=== PATIENT | male | born 1990 | race African-American/Black ===

== ENCOUNTER 2017-02-28 10:02 | Emergency (ER) | payer OTHER ==
[2017-02-28] MEDS ORDERED: SODIUM CHLORIDE 2,000 ML IV STA (10:10)
--- NOTE | 2017-02-28 10:10 | PDOC ---
Attending Attestation - Resident Resident Name: Jori Macario - ED Attending Attestation I have performed the following: I have examined & evaluated the patient, The case was reviewed & discussed with the resident, I agree w/resident's findings & plan, Exceptions are as noted - HPI HPI: 26 yo M [facility], hypotension. He has history of PCP and marijuana use, denies any IV drugs. He states that he was in a rehab meeting today, suddenly felt weak, dizzy, palpitations. Found to have low blood pressure , was transferred to ED. He did not eat or drink today, but took his medications. - Physicial Exam PE: GENERAL: Awake, alert, and fully oriented, in no acute distress HEAD: No signs of trauma EYES: PERRLA, EOMI, sclera anicteric, conjunctiva clear ENT: Auricles normal inspection, hearing grossly normal, nares patent, oropharynx clear without exudates. Dry mucosa NECK: Normal ROM, supple, no lymphadenopathy, JVD, or masses LUNGS: Breath sounds equal, clear to auscultation bilaterally. No wheezes, and no crackles HEART: Regular rate and rhythm, normal S1 and S2, no murmurs, rubs or gallops ABDOMEN: Soft, nontender, normoactive bowel sounds. No guarding, no rebound. No masses EXTREMITIES: Normal range of motion, no edema. No clubbing or cyanosis. No cords, erythema, or tenderness NEUROLOGICAL: Cranial nerves II through XII grossly intact. Normal speech, normal gait SKIN: Warm, Dry, normal turgor, no rashes or lesions noted. - Medical Decision Making Pt with hypotension, possibly related to dec PO intake. Will obtain labs, CXR, urine. If all wnl and symptoms improve, will DC home.
[2017-02-28 10:14] VITALS: TEMP 97.5; BMI 22.2
[2017-02-28 10:31] LABS: BASOPHIL 0.6 % (0-2.0); EOSINOPHIL 0.7 % (0-4.5); MCH 29.1 pg (25.7-33.7); MCHC 32.7 g/dl (32.0-35.9); MEAN PLT VOLUME 8.5 fl (7.5-11.1); NEUTROPHILS 42.9 % (42.8-82.8); PLATELET COUNT 235 K/MM3 (134-434); RDW 14.6 % (11.9-15.9); WHITE BLOOD COUNT 3.3 K/mm3 (4.0-10.0)
[2017-02-28 10:43] LABS: INR 1.19 (0.82-1.09); PROTHROMBIN TIME (PATIENT) 13.1 SEC (9.98-11.88)
[2017-02-28 10:46] LABS: ACTIVATED PTT 33.8 SECONDS (26.9-34.4)
--- NOTE | 2017-02-28 10:46 | PDOC ---
History of Present Illness <Sloane Gale - Last Filed: 02/28/17 14:32> - General History Source: Patient Exam Limitations: No Limitations - History of Present Illness Initial Comments: 02/28/17 10:39 Patient is a 26M with history of schizophrenia and drug abuse (PCP, last use 5 days ago) here today via EMS complaining of weakness. He was in a rehab meeting today, where he felt weak and dizzy, then sat on the floor. Associated symptoms include palpitations. EMS initial blood pressure had a systolic in the 60s. The patient was laid down and his blood pressure was then in the low 90s. His vital signs were otherwise stable and normal. He denies nausea, vomiting, fevers, chills, chest pain, and abdominal pain. He states that he took his seroquel this morning without eating or drinking anything. He denies any family medical history. <Jori Macario - Last Filed: 02/28/17 15:13> - General Chief Complaint: Blood Pressure Problem Stated Complaint: WEAKNESS Time Seen by Provider: 02/28/17 10:09 Past History <Sloane Gale - Last Filed: 02/28/17 14:32> - Past Medical History Psychiatric Problems: Yes (SCHIZOPHRENIA) - Psycho/Social/Smoking Cessation Hx Suicidal Ideation: No Smoking History: Current every day smoker Number of Cigarettes Smoked Daily: 10 Information on smoking cessation initiated: No Hx Alcohol Use: Yes Drug/Substance Use Hx: Yes Substance Use Type: Marijuana, Opiates <Jori Macario - Last Filed: 02/28/17 15:13> - Past Medical History Allergies/Adverse Reactions: Allergies Allergy/AdvReac Type Severity Reaction Status Date / Time No Known Allergies Allergy Verified 02/28/17 10:14 Home Medications: Ambulatory Orders Quetiapine Fumarate [Seroquel -] 200 mg PO TID 02/28/17 Review of Systems - Review of Systems Comments:: 02/28/17 10:46 GENERAL/CONSTITUTIONAL: No fever or chills. No weakness. HEAD, EYES, EARS, NOSE AND THROAT: No change in vision. No sore throat. CARDIOVASCULAR: No chest pain or shortness of breath RESPIRATORY: No cough, wheezing, or hemoptysis. GASTROINTESTINAL: No nausea, vomiting, diarrhea or constipation. GENITOURINARY: No dysuria, frequency, or change in urination. MUSCULOSKELETAL: No joint or muscle swelling or pain. No neck or back pain. NEUROLOGIC: No headache, vertigo, loss of consciousness, or change in strength/ sensation. ALLERGIC/IMMUNOLOGIC: No hives or skin allergy. <AmirahJori - Last Filed: 02/28/17 15:13> *Physical Exam - Vital Signs Last Vital Signs Temp Pulse Resp BP Pulse Ox 97.5 F L 71 20 103/81 99 02/28/17 10:07 02/28/17 12:16 02/28/17 12:16 02/28/17 12:16 02/28/17 12:16 <Sloane Gale - Last Filed: 02/28/17 14:32> - Vital Signs Last Vital Signs Temp Pulse Resp BP Pulse Ox 97.5 F L 61 18 98/61 100 02/28/17 10:07 02/28/17 10:07 02/28/17 10:07 02/28/17 10:07 02/28/17 10:07 - Physical Exam Comments: 02/28/17 10:46 GENERAL: Awake, alert, and fully oriented, in no acute distress HEAD: No signs of trauma, normocephalic, atraumatic EYES: PERRLA, EOMI, sclera anicteric, conjunctiva clear ENT: Auricles normal inspection, hearing grossly normal, nares patent, oropharynx clear without exudates. Dry mucosa NECK: Normal ROM, supple, no lymphadenopathy, JVD, or masses LUNGS: No distress, speaks full sentences, clear to auscultation bilaterally HEART: Regular rate and rhythm, normal S1 and S2, no murmurs, rubs or gallops, peripheral pulses normal and equal bilaterally. ABDOMEN: Soft, nontender, normoactive bowel sounds. No guarding, no rebound. No masses EXTREMITIES: Normal inspection, Normal range of motion, no edema. No clubbing or cyanosis. NEUROLOGICAL: Cranial nerves II through XII grossly intact. Normal speech, normal gait, no focal sensorimotor deficits SKIN: Warm, Dry, no rashes or lesions noted. <Jori Macario - Last Filed: 02/28/17 15:13> ED Treatment Course - LABORATORY CBC & Chemistry Diagram: 02/28/17 10:24 02/28/17 10:24 - ADDITIONAL ORDERS Additional order review: Laboratory Results 02/28/17 02/28/17 02/28/17 10:44 10:24 10:24 INR PTT (Actin FS) VBG pH 7.32 POC VBG pCO2 55.8 H POC VBG pO2 45.7 Mixed VBG HCO3 27.9 H Sodium Potassium Chloride Carbon Dioxide Anion Gap BUN Creatinine Creat Clearance w eGFR Random Glucose Lactic Acid Calcium Total Bilirubin AST ALT Alkaline Phosphatase Creatine Kinase Creatine Kinase Index CK-MB (CK-2) Troponin I Total Protein Albumin Urine Color Urine Appearance Urine pH Urine Protein Urine Glucose (UA) Urine Ketones Urine Blood Urine Nitrite Urine Bilirubin Urine Urobilinogen Ur Leukocyte Esterase Opiates Screen Negative Methadone Screen Negative Barbiturate Screen Negative Phencyclidine Screen Positive Ur Amphetamines Screen Negative MDMA (Ecstasy) Screen Negative Benzodiazepines Screen Negative Cocaine Screen Negative U Marijuana (THC) Screen Positive Blood Type Cancelled Antibody Screen Cancelled Spec Expiration Date Cancelled 02/28/17 02/28/17 02/28/17 10:24 10:24 10:24 INR PTT (Actin FS) VBG pH POC VBG pCO2 POC VBG pO2 Mixed VBG HCO3 Sodium 137 Potassium 4.8 Chloride 106 Carbon Dioxide 29 Anion Gap 2 L BUN 13 Creatinine 1.3 Creat Clearance w eGFR > 60 Random Glucose 109 H Lactic Acid 1.7 Calcium 8.8 Total Bilirubin 0.5 AST 26 ALT 25 Alkaline Phosphatase 54 Creatine Kinase 176 Creatine Kinase Index 0.8 CK-MB (CK-2) 1.521 Troponin I < 0.02 Total Protein 6.9 Albumin 3.8 Urine Color Straw Urine Appearance Clear Urine pH 7.0 Urine Protein Negative Urine Glucose (UA) Negative Urine Ketones Negative Urine Blood Negative Urine Nitrite Negative Urine Bilirubin Negative Urine Urobilinogen Negative Ur Leukocyte Esterase Negative Opiates Screen Methadone Screen Barbiturate Screen Phencyclidine Screen Ur Amphetamines Screen MDMA (Ecstasy) Screen Benzodiazepines Screen Cocaine Screen U Marijuana (THC) Screen Blood Type Antibody Screen Spec Expiration Date 02/28/17 10:24 INR 1.19 H PTT (Actin FS) 33.8 VBG pH POC VBG pCO2 POC VBG pO2 Mixed VBG HCO3 Sodium Potassium Chloride Carbon Dioxide Anion Gap BUN Creatinine Creat Clearance w eGFR Random Glucose Lactic Acid Calcium Total Bilirubin AST ALT Alkaline Phosphatase Creatine Kinase Creatine Kinase Index CK-MB (CK-2) Troponin I Total Protein Albumin Urine Color Urine Appearance Urine pH Urine Protein Urine Glucose (UA) Urine Ketones Urine Blood Urine Nitrite Urine Bilirubin Urine Urobilinogen Ur Leukocyte Esterase Opiates Screen Methadone Screen Barbiturate Screen Phencyclidine Screen Ur Amphetamines Screen MDMA (Ecstasy) Screen Benzodiazepines Screen Cocaine Screen U Marijuana (THC) Screen Blood Type Antibody Screen Spec Expiration Date 02/28/17 10:24 RBC 4.58 MCV 89.0 MCHC 32.7 RDW 14.6 MPV 8.5 Neutrophils % 42.9 Lymphocytes % 43.3 H Monocytes % 12.5 H Eosinophils % 0.7 Basophils % 0.6 - RADIOLOGY Radiology Studies Ordered: Category Date Time Status CHEST X-RAY PORTABLE* [RAD] Stat Radiology 02/28/17 10:10 Completed - Medications Given in the ED: ED Medications Discontinued Medications Generic Name Dose Route Start Last Admin Trade Name Freq PRN Reason Stop Dose Admin Sodium Chloride 2,000 mls @ 1,000 mls/hr 02/28/17 10:10 02/28/17 10:35 Normal Saline - IV 02/28/17 12:09 1,000 mls/hr ASDIR STA Administration Sodium Chloride 1,000 mls @ 1,000 mls/hr 02/28/17 13:33 02/28/17 13:57 Normal Saline - IV 02/28/17 14:32 1,000 mls/hr ASDIR STA Administration <Sloane Gale - Last Filed: 02/28/17 14:32> - LABORATORY CBC & Chemistry Diagram: 02/28/17 10:24 02/28/17 10:24 - ADDITIONAL ORDERS Additional order review: 02/28/17 10:24 RBC 4.58 MCV 89.0 MCHC 32.7 RDW 14.6 MPV 8.5 Neutrophils % 42.9 Lymphocytes % 43.3 H Monocytes % 12.5 H Eosinophils % 0.7 Basophils % 0.6 <Jori Macario - Last Filed: 02/28/17 15:13> Medical Decision Making - Medical Decision Making 02/28/17 10:49 ECG shows sinus bradycardia at 56bpm. No t-wave inversions, no ST elevations. Irregular. No AV node block. 02/28/17 10:50 Patient is a 26M with history of schizophrenia and drug abuse (PCP) here today complaining of weakness. 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 Inital SBP in high 90s here, but patient looks dry and reports he is hungry. Broad workup initiated, given 2L NS. Differential is broad, and includes: arrhythmias, ACS, dehydration, orthostatic hypotension, and infection. 02/28/17 15:11 CBC, CMP normal. UA negative. Utox is consistent with patient story, positive for PCP and THC. BPs last charged at >100. Eating, drinking, improved. Alert and able to ambulate. Return precautions given. <Jori Macario - Last Filed: 02/28/17 15:13> *DC/Admit/Observation/Transfer - Discharge Dispostion Admit: No <Sloane Gale - Last Filed: 02/28/17 14:32> <Jori Macario - Last Filed: 02/28/17 15:13> Diagnosis at time of Disposition: Dehydration - Discharge Dispostion Disposition: HOME Condition at time of disposition: Stable - Patient Instructions Printed Discharge Instructions: DI for Dehydration -- Adult
[2017-02-28 10:53] LABS: VENOUS BLOOD GAS HCO3 27.9 meq/L (19-25); VENOUS PH 7.32 (7.32-7.42)
[2017-02-28 11:08] LABS: ALBUMIN 3.8 g/dl (3.4-5.0); BILIRUBIN,TOTAL 0.5 mg/dL (0.2-1.0); CALCIUM 8.8 mg/dL (8.5-10.1); CO2 29 mmol/L (21-32); CREATININE 1.3 mg/dL (0.7-1.3); GLUCOSE,RANDOM 109 mg/dL (74-106); SGPT/ALT 25 U/L (12-78); TOT PROT 6.9 g/dl (6.4-8.2)
--- NOTE | 2017-02-28 11:10 | EKG ---
Test Reason : Blood Pressure : / mmHG Vent. Rate : 056 BPM Atrial Rate : 056 BPM P-R Int : 162 ms QRS Dur : 080 ms QT Int : 392 ms P-R-T Axes : 068 033 046 degrees QTc Int : 378 ms SINUS BRADYCARDIA POSSIBLE LEFT ATRIAL ENLARGEMENT BORDERLINE ECG NO PREVIOUS ECGS AVAILABLE Confirmed by ALISIA BROWN MD ([id number]) on 02/28/2017 11:10:39 AM Referred By: Confirmed By:ALISIA BROWN MD
[2017-02-28 11:12] LABS: ALK PHOS 54 U/L (45-117); TROPONIN I < 0.02 ng/ml (0.00-0.05)
[2017-02-28 11:15] LABS: CPK 176 IU/L (39-308); SGOT/AST 26 U/L (15-37)
[2017-02-28 11:25] LABS: ANION GAP 2 (8-16)
[2017-02-28 13:16] LABS: URINE APPEARANCE CLEAR; URINE BILIRUBIN NEGATIVE (NEGATIVE); URINE BLOOD NEGATIVE (NEGATIVE); URINE COLOR STRAW; URINE GLUCOSE (UA) NEGATIVE (NEGATIVE); URINE KETONE NEGATIVE (NEGATIVE); URINE LEUK ESTERASE NEGATIVE (NEGATIVE); URINE NITRITE NEGATIVE (NEGATIVE); URINE PROTEIN NEGATIVE (NEGATIVE); URINE UROBILINOGEN NEGATIVE mg/dL (0.2-1.0)
[2017-02-28] MEDS ORDERED: SODIUM CHLORIDE 1,000 ML IV STA (13:33)
[2017-02-28 13:35] LABS: URINE MARIJUANA THC POSITIVE ng/ml (CUTOFF=50)
[2017-02-28 15:53] VITALS: BP 105/49; PULSE 69
== END 2017-02-28 16:04 | disposition home or self-care (01) ==
LOC: JER 10:02
PROC: 3E0337Z Introduction of Electrolytic and Water Balance Substance into Peripheral Vein, Percutaneous Approach (ICD-10-PCS; principal; 2017-02-28)
DX: E86.0 Dehydration (principal); F20.9 Schizophrenia, unspecified; F19.10 Other psychoactive substance abuse, uncomplicated; F17.210 Nicotine dependence, cigarettes, uncomplicated
CPT/HCPCS: 36415; 71010-TC; 80053; 80307; 81003; 82553; 82803; 83605; 84484; 85025; 85610; 85730; 87040; 87086; 93005; 93010; 99285-25

== ENCOUNTER 2022-12-10 19:23 | Inpatient (IN) | payer OTHER ==
[2022-12-10 20:47] VITALS: BMI 20.6
[2022-12-10] MEDS ORDERED: LOPERAMIDE HCL 2 MG CAPSULE PO PRN (22:23)
[2022-12-10] MEDS ORDERED: BENZONATATE 200 MG CAPSULE PO PRN (22:23)
[2022-12-10] MEDS ORDERED: guaiFENesin 600 MG TABLET.ER (FP) PO PRN (22:23)
[2022-12-10] MEDS ORDERED: ACETAMINOPHEN 325 MG TABLET (FP) PO PRN (22:23)
[2022-12-10] MEDS ORDERED: BISMUTH SUBSALICYLATE 524 MG/30 ML PO PRN (22:23)
[2022-12-10] MEDS ORDERED: NICOTINE 10 MG CARTRIDGE (INHALER) IH PRN (22:23)
[2022-12-10] MEDS ORDERED: MAG HYDROX/AL HYDROX/SIMETH 30 ML UNIT-DOSE CUP PO PRN (22:23)
[2022-12-10] MEDS ORDERED: METHOCARBAMOL 500 MG TABLET PO PRN (22:23)
[2022-12-10] MEDS ORDERED: ONDANSETRON *ODT* 4 MG TABLET SL PRN (22:23)
[2022-12-10] MEDS ORDERED: MAGNESIUM HYDROX 2400MG/30ML ORAL SUSPENSION 30 ML CUP PO PRN (22:23)
[2022-12-10] MEDS ORDERED: DICYCLOMINE HCL 10 MG CAPSULE PO PRN (22:23)
[2022-12-10] MEDS ORDERED: NALOXONE HCL 0.4 MG/ML VIAL IM PRN (22:23)
[2022-12-10] MEDS ORDERED: IBUPROFEN 400 MG TABLET (FP) PO PRN (22:23)
[2022-12-10] MEDS ORDERED: IBUPROFEN 600 MG TABLET (FP) PO PRN (22:23)
[2022-12-10] MEDS ORDERED: NALOXONE HCL (KLOXXADO) 8 MG SPRAY NS PRN (22:23)
[2022-12-10] MEDS ORDERED: BENZOCAINE/MENTHOL (CHLORASEPTIC ) LOZENGE MM PRN (22:23)
[2022-12-10] MEDS ORDERED: POLYETHYLENE GLYCOL (HEALTHYLAX) 3350 17 GM PACKET PO PRN (22:23)
[2022-12-11] MEDS: NICOTINE 21 MG/24 HOURS TOPICAL PATCH TD SCH (10:21)
[2022-12-11] MEDS: PRENATAL VITAMINS W/ FOLIC ACID TABLET (FP) PO SCH (10:21)
[2022-12-11 13:29] LABS: HEMATOCRIT 40.3 % (35.4-49); HEMOGLOBIN 13.3 GM/dL (11.7-16.9); MCH 29.6 pg (25.7-33.7); MEAN CELL VOLUME 89.5 fl (80-96); MEAN PLT VOLUME 9.4 fl (7.5-11.1); PLATELET COUNT 273 10^3/uL (134-434); RBC 4.51 M/mm3 (4.00-5.60); WHITE BLOOD COUNT 5.7 K/mm3 (4.0-10.0)
[2022-12-11 15:39] LABS: ALBUMIN 3.9 g/dl (3.4-5.0); BILIRUBIN,TOTAL 0.2 mg/dL (0.2-1); BLOOD UREA NITROGEN 12.9 mg/dL (7-18); CALCIUM 9.3 mg/dL (8.5-10.1); CREATININE 0.9 mg/dL (0.55-1.3); POTASSIUM 4.6 mmol/L (3.5-5.1); TOT PROT 7.1 g/dl (6.4-8.2)
[2022-12-11] MEDS ORDERED: THIAMINE HCL 100 MG TABLET (FP) PO SCH (22:00)
[2022-12-11] MEDS ORDERED: MELATONIN 5 MG TABLETS PO SCH ×2 (22:00)
[2022-12-12] MEDS: PRENATAL VITAMINS W/ FOLIC ACID TABLET (FP) PO SCH (09:57)
[2022-12-12] MEDS: NICOTINE 21 MG/24 HOURS TOPICAL PATCH TD SCH (09:57)
[2022-12-12 13:33] VITALS: BP 112/52; PULSE 51; RESP 17; TEMP 97.7
== END 2022-12-12 13:45 | disposition home or self-care (01) | DRG 775 ==
LOC: YASAS 19:23 → Y6N 22:50
PROVIDERS: ADMIT Allergy & Immunology; ATTEND Surgery
PROC: HZ2ZZZZ Detoxification Services for Substance Abuse Treatment (ICD-10-PCS; principal; 2022-12-09)
DX: F10.230 Alcohol dependence with withdrawal, uncomplicated (principal); F16.20 Hallucinogen dependence, uncomplicated; F12.20 Cannabis dependence, uncomplicated; F17.210 Nicotine dependence, cigarettes, uncomplicated; F20.9 Schizophrenia, unspecified; F43.10 Post-traumatic stress disorder, unspecified
CPT/HCPCS: 36415; 80053; 85027; 86780; 87635; 87811; 93005; 93010

== ENCOUNTER 2023-07-29 23:22 | Inpatient (IN) | payer OTHER ==
[2023-07-29 23:46] VITALS: BMI 22.8
[2023-07-30] MEDS ORDERED: NALOXONE HCL 0.4 MG/ML VIAL IM PRN (01:57)
[2023-07-30] MEDS ORDERED: POLYETHYLENE GLYCOL (HEALTHYLAX) 3350 17 GM PACKET PO PRN (01:57)
[2023-07-30] MEDS ORDERED: NICOTINE POLACRILEX 2 MG LOZENGE BC PRN (01:57)
[2023-07-30] MEDS ORDERED: guaiFENesin 600 MG TABLET.ER (FP) PO PRN (01:57)
[2023-07-30] MEDS ORDERED: LOPERAMIDE HCL 2 MG CAPSULE PO PRN (01:57)
[2023-07-30] MEDS ORDERED: IBUPROFEN 400 MG TABLET (FP) PO PRN (01:57)
[2023-07-30] MEDS ORDERED: MAG HYDROX/AL HYDROX/SIMETH 30 ML UNIT-DOSE CUP PO PRN (01:57)
[2023-07-30] MEDS ORDERED: BENZONATATE 200 MG CAPSULE PO PRN (01:57)
[2023-07-30] MEDS ORDERED: hydrOXYzine PAMOATE 25 MG CAPSULE (FP) PO PRN (01:57)
[2023-07-30] MEDS ORDERED: IBUPROFEN 600 MG TABLET (FP) PO PRN (01:57)
[2023-07-30] MEDS ORDERED: BENZOCAINE/MENTHOL (CHLORASEPTIC ) LOZENGE MM PRN (01:57)
[2023-07-30] MEDS ORDERED: NALOXONE HCL (KLOXXADO) 8 MG SPRAY NS PRN (01:57)
[2023-07-30] MEDS ORDERED: ACETAMINOPHEN 325 MG TABLET (FP) PO PRN (01:57)
[2023-07-30] MEDS ORDERED: MAGNESIUM HYDROX 2400MG/30ML ORAL SUSPENSION 30 ML CUP PO PRN (01:57)
[2023-07-30] MEDS ORDERED: TUBERCULIN PPD 5 TU/0.1ML VIAL ID ONE (06:09)
[2023-07-30] MEDS ORDERED: TUBERCULIN PPD 5 TU/0.1ML SYRINGE (IN PATIENT USE ONLY) ID ONE (10:00)
[2023-07-30] MEDS: PRENATAL VITAMINS W/ FOLIC ACID TABLET (FP) PO SCH (10:03)
[2023-07-30] MEDS: NICOTINE 14 MG/24 HOURS TOPICAL PATCH TD SCH (10:03)
[2023-07-30] MEDS: DIVALPROEX SODIUM 500 MG TABLET E.C. PO SCH ×2 (10:50→21:29)
[2023-07-30] MEDS: QUEtiapine FUMARATE 100 MG TABLET (FP) PO SCH ×2 (13:09→21:30)
[2023-07-30 14:01] LABS: EPI CELLS 9 /uL (0-25.1); HYALINE CASTS 0 /uL (0-3.1); URINE APPEARANCE CLEAR; URINE BACTERIA 13 /uL (0-1359); URINE BILIRUBIN NEGATIVE (NEGATIVE); URINE COLOR YELLOW; URINE GLUCOSE (UA) NEGATIVE (NEGATIVE); URINE KETONE NEGATIVE (NEGATIVE); URINE LEUK ESTERASE NEGATIVE (NEGATIVE); URINE NITRITE NEGATIVE (NEGATIVE); URINE PROTEIN 2+ (NEGATIVE); URINE RBC 4 /uL (0-23.9); URINE WBC 10 /uL (0-25.8)
[2023-07-30] MEDS ORDERED: MELATONIN 5 MG TABLETS PO SCH (22:00)
[2023-07-30] MEDS ORDERED: THIAMINE HCL 100 MG TABLET (FP) PO SCH (22:00)
[2023-07-31] MEDS: QUEtiapine FUMARATE 100 MG TABLET (FP) PO SCH (06:14)
[2023-07-31 06:38] VITALS: BP 104/64; PULSE 70; RESP 16; TEMP 97.6
[2023-07-31 07:08] LABS: CHLORIDE 105 mmol/L (98-107); POTASSIUM 4.6 mmol/L (3.5-5.1); SODIUM 140 mmol/L (136-145)
[2023-07-31 07:14] LABS: ANION GAP 6 mmol/L (4-13); BLOOD UREA NITROGEN 20.8 mg/dL (7-18); CALCIUM 9.9 mg/dL (8.5-10.1); CO2 30 mmol/L (21-32); GLUCOSE,RANDOM 65 mg/dL (74-106)
[2023-07-31 07:15] LABS: ALBUMIN 4.5 g/dl (3.4-5.0)
[2023-07-31 07:20] LABS: ALK PHOS 80 U/L (45-117); BILIRUBIN,TOTAL 0.4 mg/dL (0.2-1); CREATININE 1.1 mg/dL (0.55-1.3); SGOT/AST 23 U/L (15-37); SGPT/ALT 29 U/L (13-61); TOT PROT 7.9 g/dl (6.4-8.2)
[2023-07-31 07:33] LABS: HEMATOCRIT 41.3 % (35.4-49); HEMOGLOBIN 13.5 GM/dL (11.7-16.9); MCH 29.6 pg (25.7-33.7); MCHC 32.8 g/dl (32.0-35.9); MEAN CELL VOLUME 90.3 fl (80-96); MEAN PLT VOLUME 9.8 fl (7.5-11.1); PLATELET COUNT 249 10^3/uL (134-434); RBC 4.57 M/mm3 (4.00-5.60); RDW 15.3 % (11.9-15.9); WHITE BLOOD COUNT 7.7 K/mm3 (4.0-10.0)
[2023-07-31 07:38] LABS: SYPHILIS W/ RPR CONF NON-REACTIVE (NONREACTIVE)
[2023-07-31] MEDS: PRENATAL VITAMINS W/ FOLIC ACID TABLET (FP) PO SCH (09:57)
[2023-07-31] MEDS: DIVALPROEX SODIUM 500 MG TABLET E.C. PO SCH (09:57)
[2023-07-31] MEDS: NICOTINE 14 MG/24 HOURS TOPICAL PATCH TD SCH (09:58)
== END 2023-07-31 11:27 | disposition left against medical advice (07) | DRG 770 ==
LOC: YASAS 23:22 → Y3E 07-30 02:25
PROVIDERS: ADMIT Allergy & Immunology; ATTEND Psychiatry & Neurology Pain Medicine
PROC: HZ42ZZZ Group Counseling for Substance Abuse Treatment, Cognitive-Behavioral (ICD-10-PCS; principal; 2023-07-30)
DX: F10.20 Alcohol dependence, uncomplicated (principal); F16.20 Hallucinogen dependence, uncomplicated; F12.20 Cannabis dependence, uncomplicated; F17.210 Nicotine dependence, cigarettes, uncomplicated; F25.0 Schizoaffective disorder, bipolar type; F43.10 Post-traumatic stress disorder, unspecified; Z56.0 Unemployment, unspecified; Z59.00 Homelessness unspecified
CPT/HCPCS: 0241U-QW; 36415; 80053; 80164; 80307; 81003; 85027; 86780; 86803; 93005; 93010